=== PATIENT | male | born 1955 | race Caucasian/White ===

== ENCOUNTER 2021-01-02 07:57 | Day surgery (SDC) | payer MEDICARE, BC ==
[~2021-01-02] VITALS: Ht 190.5 cm; Wt 95.5 kg
[2021-01-02] MEDS ORDERED: ROSU5TAB PO (08:32)
[2021-01-02] MEDS ORDERED: CARI350T PO (08:32)
[2021-01-02] MEDS ORDERED: MELO15TA24 PO (08:32)
[2021-01-02] MEDS ORDERED: ASPI81TA45 PO (08:32)
[2021-01-02] MEDS ORDERED: DIAZ5TAB4 PO (08:32)
[2021-01-02 08:37] VITALS: BP 147/106
[2021-01-02 08:46] LABS: BASOPHILS % (AUTO) 2 % (0-1); EOSINOPHILS % (AUTO) 3 % (1-7); LYMPHOCYTES % (AUTO) 28 % (22-44); MEAN CORPUSCULAR HEMOGLOBIN 29.4 pg (27.5-34.5); MEAN CORPUSCULAR HGB CONC 33.3 g/dL (33.2-36.2); MEAN PLATELET VOLUME 7.3 fL (7.4-10.4); MONOCYTES % (AUTO) 10 % (2-9); NEUTROPHILS % (AUTO) 58 % (42-75); PLATELET COUNT 206 x10^3/uL (130-400); RED BLOOD COUNT 4.65 x10^6/uL (4.38-5.82); RED CELL DISTRIBUTION WIDTH 14.2 % (9.4-14.8)
[2021-01-02 08:50] LABS: MD NO
[2021-01-02 08:59] LABS: ANION GAP 6 mmol/L (5-15); CALCIUM 8.9 mg/dL (8.5-10.1); CHLORIDE 112 mmol/L (98-107); CREATININE 0.97 mg/dL (0.7-1.3)
[2021-01-02] MEDS ORDERED: FENTANYL PF 100 MCG/2ML ONE (10:36)
[2021-01-02] MEDS ORDERED: MIDAZOLAM 1 MG/ML, 5ML ONE (10:37)
[2021-01-02] MEDS ORDERED: LIDOCAINE-MPF 1%, 5ML ONE (10:37)
[2021-01-02] MEDS ORDERED: HEPARIN 1,000 UNITS/ML, 10ML ONE (10:37)
[2021-01-02] MEDS ORDERED: VERAPAMIL 2.5 MG/ML, 2ML ONE (10:37)
[2021-01-02] MEDS ORDERED: BIVALIRUDIN 250 MG ONE (10:37)
[2021-01-02] MEDS ORDERED: TICAGRELOR 90 MG TABLET ONE (10:37)
[2021-01-02] MEDS ORDERED: SODIUM CHLORIDE 0.9% 1,000 ML IV SCH (12:00)
== END 2021-01-02 13:28 | disposition home or self-care (01) ==
LOC: CACL 07:57
PROVIDERS: ATTEND Internal Medicine Cardiovascular Disease
DX: I25.118 Atherosclerotic heart disease of native coronary artery with other forms of angina pectoris (principal); F41.9 Anxiety disorder, unspecified; I10 Essential (primary) hypertension; E78.5 Hyperlipidemia, unspecified; Z79.82 Long term (current) use of aspirin; Z79.899 Other long term (current) drug therapy; Z98.890 Other specified postprocedural states
CPT/HCPCS: 36415; 80048; 85025; 93458; 99156; C1769; C1894; J1644; J2250; J3010; Q9967; J0583